=== PATIENT | male | born 1975 | race Caucasian/White ===

== ENCOUNTER 2022-03-18 11:23 | Inpatient (IN) | payer OTHER ==
[2022-03-18 14:20] VITALS: BMI 23.7
[2022-03-18] MEDS ORDERED: ACETAMINOPHEN 325 MG TABLET (FP) PO PRN ×2 (20:27)
[2022-03-18] MEDS ORDERED: DICYCLOMINE HCL 10 MG CAPSULE PO PRN (20:27)
[2022-03-18] MEDS ORDERED: BISMUTH SUBSALICYLATE 524 MG/30 ML PO PRN (20:27)
[2022-03-18] MEDS ORDERED: IBUPROFEN 400 MG TABLET (FP) PO PRN (20:27)
[2022-03-18] MEDS ORDERED: IBUPROFEN 600 MG TABLET (FP) PO PRN (20:27)
[2022-03-18] MEDS ORDERED: cloNIDine HCL 0.1 MG TABLET PO PRN (20:27)
[2022-03-18] MEDS ORDERED: BENZOCAINE/MENTHOL (CHLORASEPTIC ) LOZENGE MM PRN (20:27)
[2022-03-18] MEDS ORDERED: MAGNESIUM CITRATE 300 ML BOTTLE PO PRN (20:27)
[2022-03-18] MEDS ORDERED: methaDONE HCL 10 MG TABLET (FOR DETOX USE ONLY) PO ONE (20:27)
[2022-03-18] MEDS ORDERED: MAG HYDROX/AL HYDROX/SIMETH 30 ML UNIT-DOSE CUP PO PRN (20:27)
[2022-03-18] MEDS ORDERED: LOPERAMIDE HCL 2 MG CAPSULE PO PRN (20:27)
[2022-03-18] MEDS ORDERED: ONDANSETRON *ODT* 4 MG TABLET SL PRN (20:27)
[2022-03-18] MEDS ORDERED: MAGNESIUM HYDROX 2400MG/30ML ORAL SUSPENSION 30 ML CUP PO PRN (20:27)
[2022-03-18] MEDS ORDERED: NALOXONE HCL (KLOXXADO) 8 MG SPRAY NS PRN (20:27)
[2022-03-18] MEDS ORDERED: methaDONE HCL 10 MG TABLET (FOR DETOX USE ONLY) ONE (20:43)
[2022-03-18] MEDS: levETIRAcetam 500 MG TABLET (FP) PO SCH (22:26)
[2022-03-18] MEDS: hydrOXYzine PAMOATE 25 MG CAPSULE (FP) PO SCH (22:26)
[2022-03-18] MEDS: diazePAM 5 MG TABLET PO SCH (22:26)
[2022-03-18] MEDS: MELATONIN 5 MG TABLETS PO SCH (22:26)
[2022-03-18] MEDS: THIAMINE HCL 100 MG TABLET (FP) PO SCH (22:26)
[2022-03-18] MEDS: NICOTINE 10 MG CARTRIDGE (INHALER) IH PRN (22:37)
[2022-03-19] MEDS: hydrOXYzine PAMOATE 25 MG CAPSULE (FP) PO SCH ×5 (05:34→22:13)
[2022-03-19] MEDS: diazePAM 5 MG TABLET PO SCH ×4 (05:34→22:13)
[2022-03-19] MEDS: levETIRAcetam 500 MG TABLET (FP) PO SCH ×2 (10:07→22:13)
[2022-03-19] MEDS: PRENATAL VITAMINS W/ FOLIC ACID TABLET (FP) PO SCH (10:07)
[2022-03-19 13:09] LABS: HEMOGLOBIN 12.9 GM/dL (11.7-16.9); MCH 29.6 pg (25.7-33.7); MEAN CELL VOLUME 89.7 fl (80-96); MEAN PLT VOLUME 8.3 fl (7.5-11.1); PLATELET COUNT 332 10^3/uL (134-434); RBC 4.35 M/mm3 (4.00-5.60); RDW 13.6 % (11.9-15.9); WHITE BLOOD COUNT 6.8 K/mm3 (4.0-10.0)
[2022-03-19 13:43] LABS: ALBUMIN 3.1 g/dl (3.4-5.0); BILIRUBIN,TOTAL 0.3 mg/dL (0.2-1); BLOOD UREA NITROGEN 14.6 mg/dL (7-18); CALCIUM 8.9 mg/dL (8.5-10.1); CREATININE 0.8 mg/dL (0.55-1.3); TOT PROT 6.2 g/dl (6.4-8.2)
[2022-03-19] MEDS: NICOTINE 10 MG CARTRIDGE (INHALER) IH PRN (17:53)
[2022-03-19] MEDS: THIAMINE HCL 100 MG TABLET (FP) PO SCH (22:13)
[2022-03-19] MEDS: MELATONIN 5 MG TABLETS PO SCH (22:13)
[2022-03-19] MEDS: QUEtiapine FUMARATE 200 MG TABLET PO SCH (22:13)
[2022-03-20] MEDS: diazePAM 5 MG TABLET PO SCH ×3 (05:42→22:12)
[2022-03-20] MEDS: hydrOXYzine PAMOATE 25 MG CAPSULE (FP) PO SCH ×5 (05:42→22:12)
[2022-03-20] MEDS ORDERED: methaDONE HCL 10 MG TABLET (FOR DETOX USE ONLY) PO ONE (10:00)
[2022-03-20] MEDS: levETIRAcetam 500 MG TABLET (FP) PO SCH ×2 (10:21→22:11)
[2022-03-20] MEDS: PRENATAL VITAMINS W/ FOLIC ACID TABLET (FP) PO SCH (10:21)
[2022-03-20] MEDS: diazePAM 5 MG TABLET PO PRN (10:23)
[2022-03-20 18:38] LABS: HIV INTERPRETATION NEGATIVE (NEGATIVE)
[2022-03-20] MEDS: NICOTINE 10 MG CARTRIDGE (INHALER) IH PRN (18:47)
[2022-03-20] MEDS: MELATONIN 5 MG TABLETS PO SCH (22:11)
[2022-03-20] MEDS: QUEtiapine FUMARATE 200 MG TABLET PO SCH (22:11)
[2022-03-20] MEDS: THIAMINE HCL 100 MG TABLET (FP) PO SCH (22:12)
[2022-03-21] MEDS: hydrOXYzine PAMOATE 25 MG CAPSULE (FP) PO SCH ×5 (05:22→22:18)
[2022-03-21] MEDS: diazePAM 5 MG TABLET PO SCH ×2 (05:22→17:46)
[2022-03-21] MEDS: diazePAM 5 MG TABLET PO PRN (10:27)
[2022-03-21] MEDS: levETIRAcetam 500 MG TABLET (FP) PO SCH ×2 (10:28→22:18)
[2022-03-21] MEDS: PRENATAL VITAMINS W/ FOLIC ACID TABLET (FP) PO SCH (10:28)
[2022-03-21] MEDS: NICOTINE 10 MG CARTRIDGE (INHALER) IH PRN ×2 (10:28→22:19)
[2022-03-21] MEDS: METHOCARBAMOL 500 MG TABLET PO PRN ×2 (10:28→22:20)
[2022-03-21] MEDS: QUEtiapine FUMARATE 200 MG TABLET PO SCH (22:18)
[2022-03-21] MEDS: THIAMINE HCL 100 MG TABLET (FP) PO SCH (22:18)
[2022-03-21] MEDS: MELATONIN 5 MG TABLETS PO SCH (22:18)
[2022-03-22] MEDS: hydrOXYzine PAMOATE 25 MG CAPSULE (FP) PO SCH ×5 (05:21→22:29)
[2022-03-22] MEDS ORDERED: diazePAM 5 MG TABLET PO ONE (06:00)
[2022-03-22 06:09] VITALS: RESP 18
[2022-03-22] MEDS ORDERED: BACITRACIN 0.9 GM PACKET TP SCH (10:00)
[2022-03-22] MEDS ORDERED: methaDONE HCL 10 MG TABLET (FOR DETOX USE ONLY) PO ONE (10:00)
[2022-03-22] MEDS: levETIRAcetam 500 MG TABLET (FP) PO SCH ×2 (10:27→22:29)
[2022-03-22] MEDS: PRENATAL VITAMINS W/ FOLIC ACID TABLET (FP) PO SCH (10:27)
[2022-03-22] MEDS: METHOCARBAMOL 500 MG TABLET PO PRN ×2 (10:30→18:12)
[2022-03-22] MEDS: NICOTINE 10 MG CARTRIDGE (INHALER) IH PRN (18:12)
[2022-03-22] MEDS: MELATONIN 5 MG TABLETS PO SCH (22:29)
[2022-03-22] MEDS: THIAMINE HCL 100 MG TABLET (FP) PO SCH (22:29)
[2022-03-22] MEDS: QUEtiapine FUMARATE 200 MG TABLET PO SCH (22:29)
[2022-03-23] MEDS: METHOCARBAMOL 500 MG TABLET PO PRN (05:25)
[2022-03-23] MEDS: hydrOXYzine PAMOATE 25 MG CAPSULE (FP) PO SCH (05:25)
[2022-03-23 09:19] VITALS: BP 129/68; PULSE 80; TEMP 96.9
== END 2022-03-23 09:10 | disposition home or self-care (01) | DRG 773 ==
LOC: YASAS 11:23 → SUATTDRO 11:23 → Y3N 20:22
PROVIDERS: ADMIT Allergy & Immunology; ATTEND Surgery
PROC: HZ2ZZZZ Detoxification Services for Substance Abuse Treatment (ICD-10-PCS; principal; 2022-03-18)
DX: F11.23 Opioid dependence with withdrawal (principal); F13.230 Sedative, hypnotic or anxiolytic dependence with withdrawal, uncomplicated; F12.10 Cannabis abuse, uncomplicated; F17.210 Nicotine dependence, cigarettes, uncomplicated; F19.24 Other psychoactive substance dependence with psychoactive substance-induced mood disorder; F43.10 Post-traumatic stress disorder, unspecified; F41.9 Anxiety disorder, unspecified; F31.9 Bipolar disorder, unspecified; G40.909 Epilepsy, unspecified, not intractable, without status epilepticus; G47.00 Insomnia, unspecified; S91.302A Unspecified open wound, left foot, initial encounter; X58.XXXA Exposure to other specified factors, initial encounter; Y93.9 Activity, unspecified; Y92.9 Unspecified place or not applicable; Z28.310 Unvaccinated for COVID-19; Z86.59 Personal history of other mental and behavioral disorders
CPT/HCPCS: 36415; 80053; 85027; 86780; 87389; 87811; C9803-CS; U0003; U0005